=== PATIENT | male | born 2000 | race African-American/Black ===

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

== ENCOUNTER 2020-02-24 07:44 | Emergency (ER) | payer OTHER ==
[~2020-02-24] VITALS: Ht 165.1 cm; Wt 75.0 kg
[~2020-02-24 07:44] MED LIST changes: +SULFACET SOD10 % OS
[2020-02-24] MEDS ORDERED: AMOXICILLIN500 MG PO ×2 (08:37→08:38)
[2020-02-24] MEDS ORDERED: NAPROXEN500 MG PO ×2 (08:37→08:38)
[2020-02-24 09:55] VITALS: BP 139/86
== END 2020-02-24 08:55 | disposition home or self-care (01) ==
LOC: ED 07:44
DX: K04.7 Periapical abscess without sinus (principal); M84.48XA Pathological fracture, other site, initial encounter for fracture